=== PATIENT | female | born 2005 ===

== ENCOUNTER 2023-04-16 13:55 | Emergency (ER) | payer SELFPAY ==
--- NOTE | ~2023-04-16 | CT_ITS ---
EXAMINATION: CT brain wo con DATE: 04/16/2023 15:59 INDICATION: HI Saturday, HAs since, dizziness/LH . TECHNIQUE: Computed tomography (CT) of the head was performed without intravenous contrast. The mA wa s adjusted according to patient size. Iterative reconstruction technique was employed. The dose-lengt h product was 605.33 mGy-cm. COMPARISON: None. FINDINGS: No acute intracranial hemorrhage or extra-axial fluid collection. No hydrocephalus, mass, or herniation. No acute ischemic infarct. Unremarkable dural venous sinus attenuation. No acute osseous abnormality. The aerated spaces are clear. IMPRESSION: No acute intracranial process. Reviewed, dictated and finalized at location [facility] [employer] [employer]
[2023-04-16 13:58] VITALS: BP 123/85; PULSE 100; RESP 16; TEMP 36.8; O2SAT 100
[2023-04-16 15:41] VITALS: BP 106/76; PULSE 68; RESP 17; O2SAT 100
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
[2023-04-16] MEDS: ACETAMINOPHEN 500 MG TABLET 1000 MG PO (15:51)
== END 2023-04-16 21:20 | disposition home or self-care (01) ==
LOC: ANHED 16:59
PROVIDERS: Emergency Provider Physician Assistant; PCP Nurse Practitioner
DX: S06.0X0A Concussion without loss of consciousness, initial encounter (principal); S00.81XA Abrasion of other part of head, initial encounter; W50.0XXA Accidental hit or strike by another person, initial encounter
CPT/HCPCS: 70450; 99284; A9270